=== PATIENT | female | born 1965 | race American Indian/Alaskan Native ===

== ENCOUNTER 2018-02-27 09:59 | Outpatient (CLI) | payer OTHER ==
--- NOTE | 2018-02-27 22:56 | XRay Report ---
FINAL REPORT PROCEDURE: XR SPINE LUMBOSACRAL 2-3V TECHNIQUE: Lumbar spine radiographs, frontal and lateral views. CPT 59857 HISTORY: CHRONIC BACK PAIN,ARTHRITIS IN NECK AND BACK,CYSTS IN RIGHT FOOT COMPARISON: No prior studies are available for comparison. FINDINGS: Alignment: There is mild degree spondylolisthesis at C4-5 measuring about 4 millimeters. Vertebral body heights/Disk spaces: Narrowing of intervertebral disc spaces noted at L5-S1. Fracture(s): None . Facets: Bilateral facet arthropathy is noted at L4-5 and L5-S1. Bone mineralization: Normal . IMPRESSION: Mild degree spondylolisthesis L4-5 measuring about 4 millimeters. Degenerative disc disease at L5-S1
== END 2018-02-27 10:00 | disposition home or self-care (01) ==
LOC: XRAY 09:59
PROVIDERS: ATTEND Internal Medicine
DX: M51.37 Other intervertebral disc degeneration, lumbosacral region (principal); M43.12 Spondylolisthesis, cervical region; M12.88 Other specific arthropathies, not elsewhere classified, other specified site; M25.831 Other specified joint disorders, right wrist
CPT/HCPCS: 72100